=== PATIENT | female | born 1970 | race Caucasian/White ===

== ENCOUNTER → 2019-06-22 15:52 | Outpatient (CLI) | payer OTHER, SELFPAY ==
--- NOTE | 2019-06-22 | DI.MG.S_ITS ---
BILATERAL DIGITAL SCREENING MAMMOGRAM 3D/2D WITH CAD WITH AUGMENTATION: 06/22/2019 CLINICAL: Routine screening. Baseline exam. No prior exams were available for comparison. The tissue of both breasts is heterogeneously dense. This may lower the sensitivity of mammography. Current study was also evaluated with a Computer Aided Detection (CAD) system. There is an irregular focal asymmetry in the left breast at 8 o'clock anterior depth. No other significant masses, calcifications, or other findings are seen in either breast. IMPRESSION: INCOMPLETE: NEEDS ADDITIONAL IMAGING EVALUATION The irregular focal asymmetry in the left breast is indeterminate. Additional views with possible ultrasound are recommended. This exam was interpreted at Station ID: [id number]. NOTE: For mammograms, a report in lay terms will be sent to the patient. Approximately 15% of breast malignancies will not be visualized mammographically. In the management of a palpable breast mass, a negative mammogram must not discourage biopsy of a clinically suspicious lesion. Electronically Signed By: Onel gomez/tone:06/23/2019 08:30:11 letter sent: Additional Imaging Needed ACR BI-RADS Category 0: Incomplete 3340F
== END ==
PROVIDERS: Referring Provider Family Medicine; Visit Provider Family Medicine
DX: Z12.31 Encounter for screening mammogram for malignant neoplasm of breast (principal)
CPT/HCPCS: 77063; 77067

== ENCOUNTER → 2019-07-09 07:56 | Outpatient (CLI) | payer OTHER, SELFPAY ==
--- NOTE | 2019-07-09 | DI.US.S_ITS ---
LIMITED ULTRASOUND OF LEFT BREAST: 07/09/2019 CLINICAL: Additional evaluation requested from prior study. Comparison is made to exams dated: 07/09/2019 mammogram and 06/22/2019 mammogram - [facility]. Real-time ultrasound of the left breast 7-8 o'clock region was performed. Downing scale images of the real-time examination were reviewed. No significant abnormalities were seen sonographically in the left breast. Specifically, no suspicious finding to correspond to the patient's mammographic asymmetry in the 7-8:00 position. There is an island of fibrous tissue containing a duct in this region. IMPRESSION: PROBABLY BENIGN There is no sonographic correlate to the patient's mammographic abnormality and no evidence of malignancy. A follow-up left mammogram in 6 months is recommended to demonstrate stability. Findings and recommendations were conveyed to the patient at time of exam. This exam was interpreted at Station ID: [id number]. Electronically Signed By: Stacy lynne/:07/09/2019 09:36:25 letter sent: Followup Recommended Ultrasound BI-RADS: 3 Probably benign
--- NOTE | 2019-07-09 | DI.MG.S_ITS ---
UNILATERAL LEFT DIGITAL DIAGNOSTIC MAMMOGRAM 3D/2D WITH ADDITIONAL VIEWS: 07/09/2019 CLINICAL: Additional evaluation requested from prior study. Comparison is made to exam dated: 06/22/2019 [facility]. The tissue of left breast is heterogeneously dense. This may lower the sensitivity of mammography. There is an irregular focal asymmetry measuring approximately 11 mm with an indistinct margin in the left breast at 8 o'clock anterior depth. This is seen in additional views, but is less prominent with focal compression and partially disappates. No other significant masses or calcifications are seen in the breast. IMPRESSION: INCOMPLETE: NEEDS ADDITIONAL IMAGING EVALUATION The irregular focal asymmetry in the left breast has partially resolved with additional views. Complete evaluation with ultrasound is recommended. This was performed immediately following this exam. This exam was interpreted at Station ID: [id number]. NOTE: For mammograms, a report in lay terms will be sent to the patient. Approximately 15% of breast malignancies will not be visualized mammographically. In the management of a palpable breast mass, a negative mammogram must not discourage biopsy of a clinically suspicious lesion. Electronically Signed By: Stacy lynne/:07/09/2019 08:52:06 ACR BI-RADS Category 0: Incomplete [id number]
== END ==
PROVIDERS: Referring Provider Family Medicine; Visit Provider Family Medicine
DX: R92.8 Other abnormal and inconclusive findings on diagnostic imaging of breast (principal); N64.89 Other specified disorders of breast
CPT/HCPCS: 76642; 77065; G0279